=== PATIENT | female | born 1970 | race Caucasian/White ===

== ENCOUNTER 2022-02-27 08:37 | Outpatient (CLI) | payer BC | END 2022-02-27 08:38 | disposition home or self-care (01) | LOC: BICMAMMO 08:37 | PROVIDERS: ATTEND Nurse Practitioner Adult Health | DX: Z12.31 Encounter for screening mammogram for malignant neoplasm of breast (principal); Z98.890 Other specified postprocedural states | CPT/HCPCS: 77063; 77067 ==